=== PATIENT | female | born 1950 | race Caucasian/White ===

== ENCOUNTER 2017-04-13 11:49 | Emergency (ER) | payer MEDICARE, OTHER ==
[2017-04-13 12:20] VITALS: BP 150/73
--- NOTE | 2017-04-13 12:21 | XRAY Report ---
EXAM: CHEST RADIOGRAPHY EXAM DATE: 04/13/2017 12:13 PM. CLINICAL HISTORY: Palpitations. High potassium. COMPARISON: None. TECHNIQUE: 2 views. FINDINGS: Lungs/Pleura: Hyperinflation. No consolidation. No vascular congestion. No pneumothorax. No pleural e ffusions. Mediastinum: Heart size is normal. Aorta is mildly tortuous. Other: Degenerative changes of the thoracic spine. No acute osseous abnormalities. IMPRESSION: 1. Hyperinflation. 2. No acute disease. [facility] Referring Provider Line: [phone] SITE ID: [id number]
--- NOTE | 2017-04-13 12:48 | ED Physician Documentation ---
History of Present Illness - Stated complaint Stated Complaint: HIGH POSTASSIUM LEVEL - Chief complaint Chief Complaint: Cardiac - History obtained from History obtained from: Patient - History of Present Illness Timing: Yesterday Pain level max: 0 Pain level now: 0 Improved by: nothing Worsened by: nothing - Additonal information Additional information: Patient is a 67-year-old female who presents to the emergency department after having her blood drawn at the [facility] and being sent here for an elevated potassium. This happened to her once several years ago and on redraw her potassium was normal. She states that lately she has been feeling slightly anxious like when she was initially diagnosed with hyperthyroidism. She states that her doctor has tested her thyroid recently and found to be normal she thinks. She is unsure of the results though. Review of Systems Ten Systems: 10 systems reviewed and negative Constitutional: denies: Fever, Chills Ears: denies: Ear pain Nose: denies: Rhinorrhea / runny nose, Congestion Throat: denies: Sore throat Cardiac: reports: Palpitations. denies: Chest pain / pressure Respiratory: denies: Dyspnea, Cough, Wheezing GI: denies: Abdominal Pain, Nausea, Vomiting, Diarrhea : denies: Dysuria Skin: denies: Rash Musculoskeletal: denies: Neck pain, Back pain Neurologic: denies: Focal weakness, Numbness PD PAST MEDICAL HISTORY - Past Medical History Past Medical History: Yes Cardiovascular: High cholesterol Endocrine/Autoimmune: HyPOthyroidism - Past Surgical History Past Surgical History: Yes General: Cholecystectomy - Present Medications Home Medications: Ambulatory Orders Medication Instructions Recorded Confirmed Aspirin 81 mg PO 08/31/12 08/31/12 Citalopram [CeleXA] 20 mg PO DAILY 08/31/12 08/31/12 Hydroxychloroquine [Plaquenil] 100 mg PO DAILY 08/31/12 08/31/12 Levothyroxine Sodium [Synthroid] 125 mcg PO 08/31/12 08/31/12 Simvastatin 20 mg PO 08/31/12 08/31/12 - Allergies Allergies/Adverse Reactions: Allergies Allergy/AdvReac Type Severity Reaction Status Date / Time Iodinated Contrast- Oral and Allergy Rash Verified 04/13/17 11:59 IV Dye Sulfa (Sulfonamide Allergy tachycardia Verified 04/13/17 11:58 Antibiotics) - Social History Does the pt smoke?: No Smoking Status: Never smoker Does the pt drink ETOH?: Yes Does the pt have substance abuse?: No PD ED PE NORMAL - Vitals Vital signs reviewed: Yes - General General: Alert and oriented X 3, No acute distress - HEENT HEENT: PERRL, Moist mucous membranes - Neck Neck: Supple, no meningeal sign - Cardiac Cardiac: RRR, Strong equal pulses - Respiratory Respiratory: No respiratory distress, Clear bilaterally - Abdomen Abdomen: Soft, Non tender, Non distended - Derm Derm: Warm and dry, No rash - Neuro Neuro: Alert and oriented X 3 - Psych Psych: Normal mood, Normal affect Results - Vitals Vitals: Vital Signs - 24 hr 04/13/17 11:56 Temperature 36.9 C Heart Rate 99 Respiratory 18 Rate Blood Pressure 150/73 H O2 Saturation 98 Oxygen O2 Source Room air - EKG (time done) 1225 Rate: Rate (enter#) (87) Rhythm: NSR Graham: LAD, Anterior hemiblock (LAFB) Intervals: Normal UT QRS: Normal Ischemia: Non specific changes - Labs Labs: Laboratory Tests 04/13/17 04/13/17 04/13/17 12:47 12:47 12:47 WBC 9.0 RBC 4.86 Hgb 15.5 Hct 45.4 MCV 93.5 MCH 32.0 H MCHC 34.2 RDW 12.6 Plt Count 264 MPV 7.8 L Neut # 5.5 Lymph # 2.9 [place] # 0.6 Eos # 0.1 Baso # 0.1 Absolute Nucleated RBC 0.01 Nucleated RBC % 0.1 Sodium 141 Potassium 3.5 Chloride 101 Carbon Dioxide 29 Anion Gap 11.0 BUN 9 Creatinine 0.5 Estimated GFR (MDRD) 122 Glucose 132 H Calcium 9.9 Total Bilirubin 0.8 AST 31 ALT 18 Alkaline Phosphatase 57 Troponin I < 0.04 Total Protein 7.5 Albumin 5.0 Globulin 2.5 Albumin/Globulin Ratio 2.0 Lipase 15 L TSH Free T4 04/13/17 12:47 WBC RBC Hgb Hct MCV MCH MCHC RDW Plt Count MPV Neut # Lymph # [place] # Eos # Baso # Absolute Nucleated RBC Nucleated RBC % Sodium Potassium Chloride Carbon Dioxide Anion Gap BUN Creatinine Estimated GFR (MDRD) Glucose Calcium Total Bilirubin AST ALT Alkaline Phosphatase Troponin I Total Protein Albumin Globulin Albumin/Globulin Ratio Lipase TSH 0.66 Free T4 1.26 - Rads (name of study) cxr Radiology: Prelim report reviewed, EMP read contemporaneously, See rad report ( normal) PD MEDICAL DECISION MAKING - ED course Complexity details: reviewed results, re-evaluated patient, considered differential, d/w patient ED course: Patient is a 67-year-old female who was sent in by her physician today for an elevated potassium on outpatient blood draw. She also feels like she is shaky and anxious. Symptoms resolved when she was told that her potassium levels are normal. No acute findings on EKG, chest x-ray or telemetry. Patient counseled regarding signs and symptoms for which I believe and urgent re-evaluation would be necessary. Patient with good understanding of and agreement to plan and is comfortable going home at this time This document was made in part using voice recognition software. While efforts are made to proofread this document, sound alike and grammatical errors may occur. Departure - Departure Disposition: 01 Home, Self Care Clinical Impression: Encounter for medical screening examination Condition: Good Follow-Up: HAYLEY DOUGLAS [Primary Care Provider] - As Needed Comments: Your potassium is 3.5 today. Your other labs are normal. return if you worsen. Discharge Date/Time: 04/13/17 14:27
[2017-04-13 13:04] LABS: BASOPHILS # (AUTO) 0.1 10^3/uL (0.0-0.1); EOSINOPHILS # (AUTO) 0.1 10^3/uL (0.0-0.7); EOSINOPHILS % (AUTO) 0.6 %; HGB - HEMOGLOBIN 15.5 g/dL (12.0-16.0); LYMPHOCYTES # (AUTO) 2.9 10^3/uL (1.5-3.5); LYMPHOCYTES % (AUTO) 31.6 %; MEAN CORPUSCULAR HGB CONC 34.2 g/dL (32.0-36.0); MEAN CORPUSCULAR VOLUME 93.5 fL (81.0-99.0); MEAN PLATELET VOLUME 7.8 fL (7.9-10.8); MONOCYTES # (AUTO) 0.6 10^3/uL (0.0-1.0); MONOCYTES % (AUTO) 6.3 %; NEUTROPHILS # (AUTO) 5.5 10^3/uL (1.5-6.6); NEUTROPHILS % (AUTO) 60.5 %; PLT - PLATELET COUNT 264 10^3/uL (130-450); RED BLOOD COUNT 4.86 10^6/uL (4.20-5.40); RED CELL DISTRIBUTION WIDTH 12.6 % (12.0-15.0)
[2017-04-13 13:24] LABS: BILIRUBIN,TOTAL 0.8 mg/dL (0.2-1.0); CALCIUM 9.9 mg/dL (8.5-10.3); CREATININE 0.5 mg/dL (0.4-1.0); TOTAL PROTEIN 7.5 g/dL (6.7-8.2)
[2017-04-13 14:34] LABS: THYROID STIMULATING HORMONE 0.66 uIU/mL (0.34-5.60)
[2017-04-13 14:36] LABS: FREE T4 (FREE THYROXINE) 1.26 ng/dL (0.58-1.64)
== END 2017-04-13 14:27 | disposition home or self-care (01) ==
LOC: ED 11:49
DX: Z13.29 Encounter for screening for other suspected endocrine disorder (principal); E03.9 Hypothyroidism, unspecified; I44.4 Left anterior fascicular block
CPT/HCPCS: 36415; 71046; 80053; 83690; 84439; 84443; 84484; 85025; 93005; 99283

== ENCOUNTER 2017-05-21 13:38 | Outpatient (CLI) | payer MEDICARE, OTHER ==
[~2017-05-21 13:38] MED LIST: GADOBUTROL 7.5 MMOL/7.5 ML VIAL ONE
[2017-05-21] MEDS ORDERED: GADOBUTROL 7.5 MMOL/7.5 ML VIAL IVP ONE (15:01)
--- NOTE | 2017-05-21 16:49 | MRI Report ---
EXAM: MRI BRAIN WITHOUT AND WITH CONTRAST EXAM DATE: 05/21/2017 03:07 PM. CLINICAL HISTORY: Visual disturbance. COMPARISON: None. TECHNIQUE: Multiplanar, multisequence T1-weighted and fluid-sensitive MR sequences of the brain were performed. Sequences optimized for brain and orbit evaluation. Other: None. IV Contrast: Without and with 7.5 mm Gadavist. FINDINGS: Brain Volume: Normal for age. Parenchyma: No acute hemorrhage, mass, or infarct. No white matter lesions identified. No abnormal en hancement. Ventricles/Cisterns: No hydrocephalus. Mild asymmetry of the lateral ventricles is probably an incide ntal finding, slightly larger on the left than the right. Orbits: MRI findings within the orbits are unremarkable. No evidence for proptosis, space-occupying m ass or other infiltrative process. Symmetric unremarkable appearance of the lacrimal glands and extra ocular muscles. Unremarkable appearance of the intraorbital optic nerves. Sella Turc[place]: Unremarkable appearance of the pituitary gland. No enhancing mass. Asymmetry of the optic chiasm and right optic tract, mildly elevated on the right compared to the lef t by the right supraclinoid internal carotid artery. IAC: Symmetric and unremarkable. Vasculature: The major arterial skull base flow voids are present. Contrast opacification of the ricardo r dural venous sinuses is present. Sinuses: No evidence for acute sinus or mastoid disease. Bones: No focal pathologic appearing marrow signal changes. Other: None. IMPRESSION: 1. No acute intracranial abnormality or enhancing mass. 2. Unremarkable appearance of the orbits. 3. Mildly elevated right optic tract and chiasm by the right supraclinoid internal carotid artery. [facility] Referring Provider Line: [phone] SITE ID: [id number]
== END 2017-05-21 13:39 | disposition home or self-care (01) ==
LOC: DI 13:38
PROVIDERS: ATTEND Nurse Practitioner Family
DX: H53.9 Unspecified visual disturbance (principal)
CPT/HCPCS: 70553; A9585